=== PATIENT | male | born 1970 | race Two or more races ===

== ENCOUNTER 2023-06-16 20:33 | Emergency (ER) | payer OTHER ==
[~2023-06-16] VITALS: Ht 182.9 cm; Wt 83.9 kg
[2023-06-16] MEDS ORDERED: LORAZEPAM 2 MG/1 ML VIAL IV ONE (21:15)
[2023-06-16] MEDS ORDERED: levETIRAcetam IV 500 MG in IV DEXTROSE 5% 100 ML IV ONE (21:15)
[2023-06-16] MEDS ORDERED: LORAZEPAM 2 MG/1 ML VIAL ONE (21:41)
[2023-06-16] MEDS ORDERED: levETIRAcetam 500 MG/5 ML VIAL IV ONE (21:42)
[2023-06-16 22:10] LABS: WHITE BLOOD COUNT (AUTO) 3.1 K/uL (3.6-10.2)
[2023-06-16 22:15] LABS: DIFFERENTIAL COMMENT 0
[2023-06-16 22:19] LABS: ETHANOL < 3 MG/DL (0-10)
[2023-06-16 22:20] LABS: BASOPHILS % (AUTO) 0.6 % (0.0-2.0); EOSINOPHILS # (AUTO) 0.1 K/uL (0.0-0.7); EOSINOPHILS % (AUTO) 4.2 % (0.0-7.0); HEMATOCRIT 29.9 % (36.7-47.1); HEMOGLOBIN 10.3 g/dL (12.5-16.3); LYMPHOCYTES # (AUTO) 0.9 K/uL (0.8-4.8); MEAN CORPUSCULAR HEMOGLOBIN 33.1 uug (23.8-33.4); MEAN CORPUSCULAR HGB CONC 34 g/dL (32.5-36.3); MEAN CORPUSCULAR VOLUME 96.2 fL (73.0-96.2); MONOCYTES # (AUTO) 0.6 K/uL (0.1-1.30); NEUTROPHILS # (AUTO) 1.5 K/uL (1.8-8.9); PLATELET COUNT (AUTO) 53 K/uL (152-348); RED BLOOD CELL COUNT(AUTO) 3.11 MIL/uL (4.06-5.63); RED CELL DISTRIBUTION WIDTH 17.6 % (12.1-16.2)
[2023-06-16 22:48] LABS: LYMPHOCYTES % (AUTO) 34.2 % (20.5-51.5)
[2023-06-16 23:03] LABS: CALCIUM 8.2 mg/dL (8.5-10.1); CARBON DIOXIDE 21 mmol/L (21-32); CHLORIDE 105 mmol/L (98-107); CREATININE 0.9 mg/dL (0.6-1.3); GLUCOSE 129 mg/dL (74-106); POTASSIUM 3.1 mmol/L (3.5-5.1); SODIUM SERUM 137 mmol/L (136-145); UREA NITROGEN, BLOOD 6 mg/dL (7-18)
[2023-06-16 23:09] LABS: ALANINE AMINOTRANSFERASE 23 U/L (16-63); ALBUMIN 2.1 g/dL (3.4-5.0); ALKALINE PHOSPHATASE 149 U/L (50-136); ASPARTATE AMINOTRANSFERASE 36 U/L (15-37); BILIRUBIN,DIRECT 1.4 mg/dL (0.0-0.2); BILIRUBIN,TOTAL 3.3 mg/dL (0.2-1.0); TOTAL PROTEIN, SERUM 7.3 g/dL (6.4-8.2)
[2023-06-16] MEDS ORDERED: LEVE500T9 PO (23:24)
[2023-06-16] MEDS ORDERED: POTASSIUM CHLORIDE 20 MEQ TAB.PRT.SR ONE (23:26)
[2023-06-16] MEDS ORDERED: POTASSIUM CHLORIDE 20 MEQ TAB.PRT.SR PO ONE (23:30)
[2023-06-16 23:58] VITALS: BP 138/76; TEMP 98.6; O2SAT 100
== END 2023-06-16 23:59 | disposition home or self-care (01) ==
LOC: ER 20:36
DX: R56.9 Unspecified convulsions (principal); R07.89 Other chest pain; Z79.899 Other long term (current) drug therapy
CPT/HCPCS: 80076; 80048; 85025; 36415; 71045; 70450; 99285; 96365; 96375; 80320; J1953 ×2; J2060; A4606; A4663; G0480

== ENCOUNTER 2024-07-18 19:50 | Emergency (ER) | payer OTHER ==
[~2024-07-18] VITALS: Ht 185.4 cm; Wt 86.2 kg
[~2024-07-18 19:50] MED LIST: LEVE500T9 PO
[2024-07-18] MEDS ORDERED: levETIRAcetam 500 MG/5 ML VIAL IV ONE (20:07)
[2024-07-18] MEDS: levETIRAcetam IV 1,000 MG in IV DEXTROSE 5% 100 ML IV STA (20:09)
[2024-07-18 20:27] LABS: ALBUMIN 2.2 g/dL (3.4-5.0); BILIRUBIN,TOTAL 6.7 mg/dL (0.2-1.0); CALCIUM 7.5 mg/dL (8.5-10.1); CREATININE 0.8 mg/dL (0.6-1.3); TOTAL PROTEIN, SERUM 7.7 g/dL (6.4-8.2)
[2024-07-18 20:33] LABS: ETHANOL < 3 MG/DL (0-10)
[2024-07-18 20:38] LABS: BASOPHILS % (AUTO) 0.4 % (0.0-2.0); DIFFERENTIAL COMMENT 0; EOSINOPHILS # (AUTO) 0.1 K/uL (0.0-0.7); EOSINOPHILS % (AUTO) 1.3 % (0.0-7.0); HEMATOCRIT 38.2 % (36.7-47.1); HEMOGLOBIN 13.1 g/dL (12.5-16.3); LYMPHOCYTES % (AUTO) 11.3 % (20.5-51.5); MEAN CORPUSCULAR HEMOGLOBIN 34.4 uug (23.8-33.4); MEAN CORPUSCULAR HGB CONC 34 g/dL (32.5-36.3); MEAN CORPUSCULAR VOLUME 100.4 fL (73.0-96.2); MONOCYTES # (AUTO) 1.4 K/uL (0.1-1.30); NEUTROPHILS # (AUTO) 6.3 K/uL (1.8-8.9); RED BLOOD CELL COUNT(AUTO) 3.81 MIL/uL (4.06-5.63); RED CELL DISTRIBUTION WIDTH 15.4 % (12.1-16.2); WHITE BLOOD COUNT (AUTO) 8.9 K/uL (3.6-10.2)
[2024-07-18 20:41] LABS: LACTIC ACID 2.4 mmol/L (0.4-2.0); PLATELET COUNT (AUTO) 37 K/uL (152-348)
[2024-07-18] MEDS ORDERED: LORAZEPAM 2 MG/1 ML VIAL ONE (20:58)
[2024-07-18] MEDS: LORAZEPAM 2 MG/1 ML VIAL IV ONE (21:03)
[2024-07-18 21:40] LABS: ANISOCYTOSIS 1+; BAND % (MANUAL) 7 % (0-10); EOSINOPHILS % (MANUAL) 2 % (0-8); LYMPHOCYTES % (MANUAL) 12 % (20-40); MONOCYTES % (MANUAL) 15 % (2-10); NEUTROPHILS % (MANUAL) 64 % (42-75); PLATELET ESTIMATE MARKED DECREASED
[2024-07-19 00:06] LABS: *BLOOD, URINE NEGATIVE (NEGATIVE); *CLARITY,URINE TURBID (CLEAR); *COLOR,URINE DARK YELLOW (YELLOW); *KETONES,URINE NEGATIVE (NEGATIVE); *PROTEIN,URINE NEGATIVE (NEGATIVE); LEUKOCYTE ESTERASE ,URINE NEGATIVE (NEGATIVE); NITRITE, URINE NEGATIVE (NEGATIVE); UGLUCOSE NEGATIVE (NEGATIVE)
[2024-07-19 00:30] LABS: *BILIRUBIN,URIN 1+ (NEGATIVE)
[2024-07-19 00:39] LABS: BACTERIA,URINE MODERATE /HPF (NONE SEEN); RBC,URINE NONE SEEN /HPF (0-3); SQUAMOUS EPITHELIAL CELL,UR MODERATE /HPF (NONE SEEN); WBC,URINE 0-3 /HPF (0-3); YEAST,URINE MODERATE /HPF (NONE SEEN)
[2024-07-19 00:41] LABS: *AMPHETAMINE, URINE NEGATIVE (NEGATIVE); *BARBITURATE, URINE NEGATIVE (NEGATIVE); *BENZODIAZEPINE, URINE NEGATIVE (NEGATIVE); *CANNABINOID, URINE NEGATIVE (NEGATIVE); *COCCAINE, URINE NEGATIVE (NEGATIVE); *OPIATE, URINE NEGATIVE (NEGATIVE); *PHENCYCLIDINE SCREEN,URINE NEGATIVE (NEGATIVE); FENTANYL, URINE NEGATIVE (NEGATIVE)
[2024-07-19 00:58] VITALS: O2SAT 95
== END 2024-07-19 01:25 | disposition short-term general hospital (02) ==
LOC: ER 19:50
DX: R56.9 Unspecified convulsions (principal); D69.6 Thrombocytopenia, unspecified; I50.9 Heart failure, unspecified; Z86.73 Personal history of transient ischemic attack (TIA), and cerebral infarction without residual deficits; Z79.899 Other long term (current) drug therapy
CPT/HCPCS: 80053; 81001; 82248; 83735; 85007; 85025; 36415; 71045; 70450; 93005; 99291; 96374; 96375; 83605 ×2; 87086; 80320; 80307; J1953; J2060; 70030-TC; A4606; A4663; G0480